=== PATIENT | female | born 1980 | race Caucasian/White ===

== ENCOUNTER 2016-04-12 22:54 | Emergency (ER) | payer OTHER ==
[~2016-04-12 22:54] MED LIST: IBUP-1060 PO; OXYC1TAB7 PO; PROAIR HFA8.5 GM IH
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
[2016-04-12 23:57] LABS: NEG OBC UR NEG; POS OBC UR POS
[2016-04-13 00:05] LABS: BARBITURATES NEG (NEG); BENZODIAZEPINES NEG (NEG); CANNABINOIDS POS (NEG); COCAINE NEG (NEG); METHADONE NEG (NEG); OPIATES POS (NEG); PHENCYCLIDINE NEG (NEG)
[2016-04-13 00:06] LABS: ETHANOL, URINE NEG (NEG)
[2016-04-13] MEDS ORDERED: IBUPROFEN 800 MG TABLET. PO ONE (00:15)
[2016-04-13 01:09] VITALS: BP 104/61
--- NOTE | 2016-04-13 08:16 | RAD ---
EXAM: Chest and right ribs, 4 views. HISTORY: Pain. COMPARISON: None. FINDINGS: A frontal view of the chest and 3 views of the right ribs are obtained. There is no infiltrate, effusion or pneumothorax. The heart is normal in size. There are calcifications within the right axilla, likely associated with lymph nodes. No displaced fracture is seen. IMPRESSION: No acute pulmonary or osseous finding.
== END 2016-04-13 01:10 | disposition home or self-care (01) ==
LOC: ER 22:54 → EEVIPCON 22:54 → ER 04-13 01:10
DX: S20.211A Contusion of right front wall of thorax, initial encounter (principal); F41.0 Panic disorder [episodic paroxysmal anxiety]; F31.9 Bipolar disorder, unspecified; J44.9 Chronic obstructive pulmonary disease, unspecified; M79.7 Fibromyalgia; G51.0 Bell's palsy; F12.10 Cannabis abuse, uncomplicated; Y04.0XXA Assault by unarmed brawl or fight, initial encounter; Y93.89 Activity, other specified; Y92.89 Other specified places as the place of occurrence of the external cause; Y99.8 Other external cause status
CPT/HCPCS: 71101; 81025; 99285; G0481

== ENCOUNTER 2017-01-27 17:22 | Emergency (ER) | payer OTHER ==
[~2017-01-27] VITALS: Ht 172.7 cm; Wt 63.5 kg
[2017-01-27 18:04] VITALS: BP 117/79
[2017-01-27] MEDS ORDERED: NAPR500T4 PO (18:29)
[2017-01-27] MEDS ORDERED: CYCL10TA2 PO (18:29)
--- NOTE | 2017-01-27 18:29 | PHYS DOC ---
Past Medical History Past Medical History: Anxiety, Bipolar, COPD, Fibromyalgia, MRSA, Seizure, Other Additional Past Medical Histor: panic attacks, shahid's palsy, Post depression Past Surgical History: Other Additional Past Surgical Histo: oral surgery, skin biopsy, D&C Alcohol Use: None Drug Use: Marijuana Adult General Chief Complaint Chief Complaint: RIB PAIN [facility] HPI Patient is a 36 year old female with history of bipolar, anxiety, fibromyalgia , who presents with 7 out of 10 spasms of the left lower ribs that she states began 4 days ago after she lifted something heavy out of a dump truck. Patient states the pain is worse on certain movements. Patient denies any shortness of breath. Review of Systems Review of Systems Constitutional: Denies fever or chills [] Eyes: Denies change in visual acuity, redness, or eye pain [] HENT: Denies nasal congestion or sore throat [] Respiratory: Left lower rib pain, denies shortness of breath. Cardiovascular: No additional information not addressed in HPI [] GI: Denies abdominal pain, nausea, vomiting, bloody stools or diarrhea [] : Denies dysuria or hematuria [] Musculoskeletal: Denies back pain or joint pain [] Integument: Denies rash or skin lesions [] Neurologic: Denies headache, focal weakness or sensory changes [] All other systems were reviewed and found to be within normal limits, except as documented in this note. Allergies Allergies Allergies Coded Allergies Type Severity Reaction Last Updated Verified No Known Drug Allergies 05/14/13 No Physical Exam Physical Exam Constitutional: Well developed, well nourished, no acute distress, non-toxic appearance. [] HENT: Normocephalic, atraumatic, bilateral external ears normal, oropharynx moist, no oral exudates, nose normal. [] Eyes: PERRLA, EOMI, conjunctiva normal, no discharge. [] Neck: Normal range of motion, no tenderness, supple, no stridor. [] Cardiovascular:Heart rate regular rhythm, no murmur [] Lungs & Thorax: Bilateral breath sounds clear to auscultation, no bruising noted on the left ribs. Tenderness on palpation of the left lower ribs approximately ribs 6 and 7 midclavicular line. Abdomen: Bowel sounds normal, soft, no tenderness, no masses, no pulsatile masses. [] Skin: Warm, dry, no erythema, no rash. [] Back: No tenderness, no CVA tenderness. [] Extremities: No tenderness, no cyanosis, no clubbing, ROM intact, no edema. [] Neurologic: Alert and oriented X 3, normal motor function, normal sensory function, no focal deficits noted. [] Psychologic: Affect normal, judgement normal, mood normal. [] Current Patient Data Vital Signs Vital Signs Date Time Temp Pulse Resp B/P (MAP) Pulse Ox O2 Delivery O2 Flow Rate FiO2 01/27/17 18:04 98.0 108 18 100 Room Air 98.0 EKG EKG [] Radiology/Procedures Radiology/Procedures [] Course & Med Decision Making Course & Med Decision Making Pertinent Labs and Imaging studies reviewed. (See chart for details) Patient is in the ED with left lower rib pain that began 4 days ago after lifting something heavy from a dump truck. Highly suspect muscle strain. Discharged with instructions to apply ice or heat to the affected area. Encouraged to take deep breaths every hour. Discharged with cyclobenzaprine and naproxen. Follow-up with her PCP in 1-2 weeks. Work note provided for 2 days. Dragon Disclaimer Dragon Disclaimer This electronic medical record was generated, in whole or in part, using a voice recognition dictation system. Departure Departure Impression: Primary Impression: Muscle strain Disposition: 01 HOME, SELF-CARE Condition: STABLE Referrals: NO PCP (PCP) follow up with your doctor in one week Patient Instructions: Muscle Strain Additional Instructions: You were seen with a muscle strain of your ribs. Do not lift anything greater than a gallon of milk for one week. Apply heat or ice to the affected area. Take the prescribed medicines as ordered. Do not drive or operate machinery on the cyclobenzaprine. Scripts Naproxen (NAPROXEN) 500 Mg Tablet 1 TAB PO BID, #20 TAB 0 Refills Prov: BENITO WILLIAM APRN 01/27/17 Cyclobenzaprine Hcl (CYCLOBENZAPRINE HCL) 10 Mg Tablet 1 TAB PO TID, #30 TAB Prov: BENITO WILLIAM APRN 01/27/17 BENITO WILLIAM APRN Jan 27, 2017 18:29
== END 2017-01-27 18:38 | disposition home or self-care (01) ==
LOC: ER 17:22
DX: S29.011A Strain of muscle and tendon of front wall of thorax, initial encounter (principal); F31.9 Bipolar disorder, unspecified; J44.9 Chronic obstructive pulmonary disease, unspecified; M79.7 Fibromyalgia; F41.0 Panic disorder [episodic paroxysmal anxiety]; G51.0 Bell's palsy; F12.10 Cannabis abuse, uncomplicated; X58.XXXA Exposure to other specified factors, initial encounter; Y93.89 Activity, other specified; Y92.89 Other specified places as the place of occurrence of the external cause; Y99.8 Other external cause status
CPT/HCPCS: 99283

== ENCOUNTER 2018-12-01 19:10 | Observation (INO) | payer MEDICAID ==
[~2018-12-01] VITALS: Ht 172.7 cm; Wt 81.6 kg
[~2018-12-01 19:10] MED LIST changes: +ALBU2.5V8 IH; +CYCL10TA2 PO; +NAPR-514 PO; -PROAIR HFA8.5 GM IH
[2018-12-01] MEDS ORDERED: IV RINGERS,LACTATED 1000ML 1,000 ML IV SCH ×2 (19:15→21:15)
[2018-12-01 19:35] LABS: BILIRUBIN,URINE NEGATIVE (NEG); CLARITY,URINE CLOUDY; COLOR,URINE YELLOW; NITRITE,URINE NEGATIVE (NEG); PROTEIN,URINE NEGATIVE (NEG-TRACE)
[2018-12-01 19:41] LABS: BARBITURATES NEG (NEG); BENZODIAZEPINES NEG (NEG); CANNABINOIDS NEG (NEG); COCAINE NEG (NEG); METHADONE NEG (NEG); OPIATES NEG (NEG); PHENCYCLIDINE NEG (NEG)
[2018-12-01 19:42] LABS: AMPHETAMINE/METHAMPHETAMINE NEG (NEG)
[2018-12-01 19:45] LABS: SQUAMOUS EPITHELIAL CELL,UR MANY /LPF
[2018-12-01 19:46] LABS: BACTERIA,URINE MANY /HPF (0-FEW); WBC,URINE >40 /HPF (0-4)
[2018-12-01 19:47] LABS: RBC,URINE OCC /HPF (0-2); TRICHOMONAS,URINE PRESENT
== END 2018-12-02 09:01 | disposition home or self-care (01) ==
LOC: 3 SO LND 19:10
PROVIDERS: ADMIT Specialist; ATTEND Specialist
DX: O46.93 Antepartum hemorrhage, unspecified, third trimester (principal); O62.9 Abnormality of forces of labor, unspecified; Z3A.30 30 weeks gestation of pregnancy
CPT/HCPCS: 80307; 81001; 87086; 96365; G0378; G0379; J3490; J7120

== ENCOUNTER 2019-01-10 11:07 | Observation (INO) | payer MEDICAID ==
[2019-01-10] MEDS ORDERED: IV RINGERS,LACTATED 1000ML 1,000 ML IV SCH (11:56)
[2019-01-10 12:08] LABS: BILIRUBIN,URINE NEGATIVE (NEG); CLARITY,URINE CLOUDY; COLOR,URINE YELLOW; NITRITE,URINE NEGATIVE (NEG); PROTEIN,URINE NEGATIVE (NEG-TRACE); UROBILINOGEN,URINE 0.2 mg/dL (0.2 mg/dL)
[2019-01-10 12:15] LABS: BARBITURATES NEG (NEG); BENZODIAZEPINES NEG (NEG); CANNABINOIDS NEG (NEG); COCAINE NEG (NEG); METHADONE NEG (NEG); OPIATES NEG (NEG); PHENCYCLIDINE NEG (NEG)
[2019-01-10 12:17] LABS: SQUAMOUS EPITHELIAL CELL,UR MANY /LPF
[2019-01-10 12:18] LABS: AMORPHOUS SEDIMENT,UR PRESENT /HPF; AMPHETAMINE/METHAMPHETAMINE NEG (NEG); BACTERIA,URINE FEW /HPF (0-FEW)
[2019-01-13] MEDS ORDERED: PNV1TABL25 PO (07:18)
[2019-01-15 13:00] VITALS: BP 110/68
[2019-01-15] MEDS ORDERED: NAPR-514 PO (13:48)
[2019-01-15] MEDS ORDERED: HYDR-3164 PO (13:48)
== END 2019-01-10 15:24 | disposition home or self-care (01) ==
LOC: 3 SO LND 11:07 → UNDOADMIN 11:07 → 3 SO LND 11:20 → UNDOADMOB 11:56 → 3 SO LND 11:56 → UNDODISIN 15:03
PROVIDERS: ADMIT Specialist; ATTEND Specialist
DX: O42.913 Preterm premature rupture of membranes, unspecified as to length of time between rupture and onset of labor, third trimester (principal); O09.523 Supervision of elderly multigravida, third trimester; O99.343 Other mental disorders complicating pregnancy, third trimester; F31.9 Bipolar disorder, unspecified; Z79.899 Other long term (current) drug therapy; Z3A.29 29 weeks gestation of pregnancy
CPT/HCPCS: 80307; 81001; G0378; G0379